=== PATIENT | male | born 1995 | race Caucasian/White ===

== ENCOUNTER 2021-11-23 02:34 | Emergency (ER) | payer SELFPAY ==
[~2021-11-23] VITALS: Ht 175.3 cm; Wt 68.0 kg
[2021-11-23 02:38] VITALS: BP 173/100
--- NOTE | 2021-11-23 02:42 | NUR ---
LEFT WITHOUT BEING SEEN
== END 2021-11-23 02:43 | disposition left against medical advice (07) ==
LOC: ER 02:37
DX: Z53.21 Procedure and treatment not carried out due to patient leaving prior to being seen by health care provider (principal)